=== PATIENT | female | born 2000 | race Caucasian/White ===

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

== ENCOUNTER 2021-08-24 15:31 | Emergency (ER) | payer OTHER ==
[~2021-08-24 15:31] MED LIST: VISTARIL25 MG PO
[2021-08-24 18:57] LABS: BASOPHIL 0.7 % (0-2); EOSINOPHIL 0.9 % (0-5); HCT 43.5 % (37.0-47.0); HGB 14.4 g/dl (12.5-16.0); LYMPHOCYTE 35.7 % (15-48); MCH 28.3 pg (25.0-31.0); MCHC 33.1 g/dL (32.0-36.0); MCV 85.6 fL (78.0-100.0); MONOCYTE 7.8 % (0-12); MPV 10.2 fL (6.0-9.5); NEUTROPHIL 54.7 % (41-80); NRBC 0; PLT 279 K/uL (150-400); RBC 5.08 M/uL (4.20-5.40); RDW 11.7 % (11.5-14.0); WBC 8.8 K/uL (4.0-10.5)
[2021-08-24 19:12] LABS: BUN/CREAT RATIO (CALC) 17.7 RATIO; CREATININE 0.62 mg/dL (0.51-0.95); POTASSIUM 3.4 mmol/L (3.5-5.1)
[2021-08-24] MEDS ORDERED: PRINIVIL10 MG PO (20:13)
== END 2021-08-24 21:33 | disposition home or self-care (01) ==
LOC: FER 15:31
PROVIDERS: Nurse Practitioner Family
DX: I10 Essential (primary) hypertension (principal); Z79.82 Long term (current) use of aspirin
CPT/HCPCS: 36415; 80048; 85025; 99283